=== PATIENT | female | born 1950 | race Caucasian/White ===

== ENCOUNTER → 2016-10-11 | Outpatient (CLI) | payer MEDICARE, OTHER ==
[~2016-10-11] MED LIST: DOCU-30 PO; ESTROGEN; FENTANYL PF 100 MCG/2ML ONE; FLUMAZENIL 0.1 MG/1 ML, 5ML ONE; HYDR-3138 PO; LEVO750T26 PO; METF500T4 PO; METO25TA35 PO; MIDAZOLAM 1 MG/ML, 5ML ONE; NALOXONE 1 MG/ML, 2ML ONE; PHEN-490 PO; POLY17PO5 PO; SIMV20TA3 PO
== END | disposition home or self-care (01) ==
LOC: RAD 10:14 → EDSTATUS 12:45
PROVIDERS: ATTEND Internal Medicine Hematology & Oncology
DX: C79.51 Secondary malignant neoplasm of bone (principal); C34.90 Malignant neoplasm of unspecified part of unspecified bronchus or lung; G31.89 Other specified degenerative diseases of nervous system; G93.89 Other specified disorders of brain; I67.82 Cerebral ischemia; R90.82 White matter disease, unspecified
CPT/HCPCS: 70551; J2250; J3010; J2310

== ENCOUNTER → 2016-10-11 | Outpatient (CLI) | payer MEDICARE, OTHER ==
[~2016-10-11] MED LIST changes: -FENTANYL PF 100 MCG/2ML ONE; -FLUMAZENIL 0.1 MG/1 ML, 5ML ONE; -MIDAZOLAM 1 MG/ML, 5ML ONE; -NALOXONE 1 MG/ML, 2ML ONE
== END | disposition home or self-care (01) ==
LOC: CFH 08:20 → EDSTATUS 08:30
PROVIDERS: ATTEND Internal Medicine Hematology & Oncology
DX: C34.90 Malignant neoplasm of unspecified part of unspecified bronchus or lung (principal); C79.51 Secondary malignant neoplasm of bone; N20.0 Calculus of kidney; R91.8 Other nonspecific abnormal finding of lung field; M89.551 Osteolysis, right thigh
CPT/HCPCS: 78815; A9552

== ENCOUNTER 2016-10-19 11:40 | Day surgery (SDC) | payer MEDICARE, OTHER ==
[~2016-10-19] VITALS: Ht 167.6 cm; Wt 98.5 kg
[2016-10-19] MEDS ORDERED: OXYC-302 PO (12:06)
[2016-10-19] MEDS ORDERED: LACTATED RINGERS 1,000 ML IV SCH (12:32)
[2016-10-19 12:33] VITALS: BP 120/87
[2016-10-19] MEDS ORDERED: ROCURONIUM 10 MG/ML ONE (12:47)
[2016-10-19] MEDS ORDERED: SUCCINYLCHOLINE 20 MG/ML, 10ML ONE (12:47)
[2016-10-19] MEDS ORDERED: ONDANSETRON 2MG/ML, 2ML ONE (12:47)
[2016-10-19] MEDS ORDERED: EPHEDRINE 50 MG/ML, 1ML ONE (12:47)
[2016-10-19] MEDS ORDERED: PROPOFOL 10 MG/ML, 20ML ONE (12:47)
[2016-10-19] MEDS ORDERED: GADOBUTROL 10 MMOL/10 ML PFS ONE (13:56)
== END 2016-10-19 16:00 | disposition home or self-care (01) ==
LOC: OUT 11:40 → EDSTATUS 12:45 → OUT 16:00
PROVIDERS: ATTEND Internal Medicine Hematology & Oncology
DX: C34.90 Malignant neoplasm of unspecified part of unspecified bronchus or lung (principal); C79.51 Secondary malignant neoplasm of bone; M48.06 Spinal stenosis, lumbar region; M51.36 Other intervertebral disc degeneration, lumbar region; L72.3 Sebaceous cyst; Z85.528 Personal history of other malignant neoplasm of kidney; I10 Essential (primary) hypertension; I27.2 Other secondary pulmonary hypertension; E66.9 Obesity, unspecified; Z68.35 Body mass index [BMI] 35.0-35.9, adult; Z87.440 Personal history of urinary (tract) infections; Z90.49 Acquired absence of other specified parts of digestive tract; E78.00 Pure hypercholesterolemia, unspecified; Z87.442 Personal history of urinary calculi; Z80.1 Family history of malignant neoplasm of trachea, bronchus and lung
CPT/HCPCS: 70553; 72158; A9585; J0330; J2250; J2405; J2704; J7120

== ENCOUNTER 2016-11-01 09:44 | Inpatient (IN) | payer MEDICARE, OTHER ==
[~2016-11-01] VITALS: Ht 175.3 cm; Wt 104.8 kg
[~2016-11-01 09:44] MED LIST changes: +OXYC-302 PO
[2016-11-01] MEDS ORDERED: SODIUM CHLORIDE 0.9% 1,000ML IVBOLUS ONE (10:30)
[2016-11-01] MEDS ORDERED: ONDANSETRON 2MG/ML, 2ML IVPush ONE (10:30)
[2016-11-01] MEDS ORDERED: OXYC10TA6 PO (10:52)
[2016-11-01] MEDS ORDERED: PLEASE ENTER HEIGHT AND WEIGHT MC SCH (11:00)
[2016-11-01] MEDS ORDERED: ONDANSETRON 2MG/ML, 2ML ONE (11:13)
[2016-11-01] MEDS ORDERED: MORPHINE SULFATE 4 MG/ML, 1ML ONE ×2 (11:13→12:11)
[2016-11-01] MEDS: MORPHINE SULFATE 4 MG/ML, 1ML IVPush PRN ×2 (11:17→12:14)
[2016-11-01 11:39] LABS: DIFF TOTAL CELLS COUNTED 100 CELL DIFF
[2016-11-01 11:48] LABS: BLOOD UREA NITROGEN 20 mg/dL (7-18)
[2016-11-01 11:53] LABS: ASPARTATE AMINO TRANSFERASE 38 U/L (15-37)
[2016-11-01 12:33] LABS: VERIFY COUNTS? YES
[2016-11-01 12:34] LABS: ANISOCYTOSIS 1+
[2016-11-01] MEDS ORDERED: HYDROmorphone 1 MG/ML, 1ML ONE (12:49)
[2016-11-01] MEDS: HYDROmorphone 2 MG/ML, 1ML IVPush PRN ×2 (12:56→20:21)
[2016-11-01] MEDS ORDERED: OMNIPAQUE 350 MG/ML, 100ML BOTTLE ONE (14:04)
[2016-11-01] MEDS ORDERED: CEFTRIAXONE PMX 1GM/50ML 50 ML ONE (16:18)
[2016-11-01] MEDS ORDERED: CEFTRIAXONE PMX 1GM/50ML 50 ML IV ONE (16:30)
[2016-11-01 17:26] VITALS: BP 112/68
[2016-11-01] MEDS ORDERED: ONDANSETRON 2MG/ML, 2ML IVP PRN (17:30)
[2016-11-01] MEDS: INSULIN REGULAR 100 UNITS/ML, 3ML VIAL SQ-INSULIN SCH ×2 (17:30→20:21)
[2016-11-01] MEDS ORDERED: TRAZODONE 50MG TABLET PO PRN (17:30)
[2016-11-01] MEDS ORDERED: DOCUSATE 100 MG CAPSULE PO PRN (17:30)
[2016-11-01] MEDS ORDERED: HYDROcodone/APAP 5/325 TABLET PO PRN (17:30)
[2016-11-01] MEDS ORDERED: ACETAMINOPHEN 325 MG TABLET PO PRN (17:30)
[2016-11-01] MEDS ORDERED: MORPHINE SULFATE 4 MG/ML, 1ML IVPush PRN (17:30)
[2016-11-01] MEDS: CEFTRIAXONE PMX 1GM/50ML 50 ML IV SCH (18:00)
[2016-11-01] MEDS: SODIUM CHLORIDE 0.9% 1,000 ML IV SCH (18:45)
[2016-11-01 20:05] VITALS: BP 109/74
[2016-11-01] MEDS: ENOXAPARIN 40 MG/0.4 ML SQ SCH (20:21)
[2016-11-01] MEDS: OXYcodone IR 5MG TABLET PO PRN (22:03)
[2016-11-02] MEDS: HYDROmorphone 2 MG/ML, 1ML IVPush PRN ×5 (00:44→20:07)
[2016-11-02 01:09] VITALS: BP 99/64
[2016-11-02] MEDS: OXYcodone IR 5MG TABLET PO PRN ×3 (04:09→21:34)
[2016-11-02] MEDS: SODIUM CHLORIDE 0.9% 1,000 ML IV SCH ×2 (04:20→15:46)
[2016-11-02 04:57] VITALS: BP 123/79
[2016-11-02 06:37] LABS: BLOOD UREA NITROGEN 18 mg/dL (7-18)
[2016-11-02] MEDS: INSULIN REGULAR 100 UNITS/ML, 3ML VIAL SQ-INSULIN SCH ×4 (07:00→20:05)
[2016-11-02 07:39] VITALS: BP 127/74
[2016-11-02] MEDS ORDERED: OxyconTIN ER 20 MG TAB.ER ONE ×2 (12:14→23:01)
[2016-11-02] MEDS: OxyconTIN ER 40 MG TAB.ER PO SCH ×2 (12:15→23:08)
[2016-11-02 12:26] VITALS: BP 107/69
[2016-11-02 12:30] LABS: DIFF TOTAL CELLS COUNTED 100 CELL DIFF
[2016-11-02 12:33] LABS: VERIFY COUNTS? YES
[2016-11-02 12:53] VITALS: BP 132/70
[2016-11-02] MEDS: ENOXAPARIN 40 MG/0.4 ML SQ SCH (16:47)
[2016-11-02] MEDS: DEXAMETHASONE 1 MG TABLET PO SCH (16:47)
[2016-11-02] MEDS: CEFTRIAXONE PMX 1GM/50ML 50 ML IV SCH (16:47)
[2016-11-02 18:23] LABS: TOTAL IRON BINDING CAPACITY 226 mcg/dL (250-450)
[2016-11-02 19:45] VITALS: BP 111/60
[2016-11-03 00:04] VITALS: BP 125/75
[2016-11-03] MEDS: HYDROmorphone 2 MG/ML, 1ML IVPush PRN ×7 (00:10→21:51)
[2016-11-03] MEDS: OXYcodone IR 5MG TABLET PO PRN ×5 (02:48→19:46)
[2016-11-03] MEDS: SODIUM CHLORIDE 0.9% 1,000 ML IV SCH ×2 (02:50→19:44)
[2016-11-03 06:41] LABS: BLOOD UREA NITROGEN 11 mg/dL (7-18)
[2016-11-03 06:48] LABS: DIFF TOTAL CELLS COUNTED 100 CELL DIFF
[2016-11-03 06:50] LABS: LARGE PLATELETS 1+; POLYCHROMASIA 1+; VERIFY COUNTS? YES
[2016-11-03 07:00] VITALS: BP 141/79
[2016-11-03] MEDS: INSULIN REGULAR 100 UNITS/ML, 3ML VIAL SQ-INSULIN SCH ×4 (07:00→21:39)
[2016-11-03] MEDS ORDERED: HYDROmorphone 1 MG/ML, 1ML ONE ×3 (07:54→14:14)
[2016-11-03] MEDS: DEXAMETHASONE 1 MG TABLET PO SCH ×2 (07:57→16:32)
[2016-11-03 14:13] VITALS: BP 134/76
[2016-11-03] MEDS ORDERED: OxyconTIN ER 10 MG TAB.ER ONE (14:14)
[2016-11-03] MEDS ORDERED: OxyconTIN ER 20 MG TAB.ER ONE (14:15)
[2016-11-03] MEDS: OxyconTIN ER 40 MG TAB.ER PO SCH (14:17)
[2016-11-03] MEDS: CEFTRIAXONE PMX 1GM/50ML 50 ML IV SCH (16:32)
[2016-11-03 19:50] VITALS: BP 126/76
[2016-11-03] MEDS: ENOXAPARIN 40 MG/0.4 ML SQ SCH (21:40)
[2016-11-04] MEDS ORDERED: OxyconTIN ER 20 MG TAB.ER ONE ×2 (00:29→12:27)
[2016-11-04] MEDS: OxyconTIN ER 40 MG TAB.ER PO SCH ×2 (00:30→12:28)
[2016-11-04] MEDS: OXYcodone IR 5MG TABLET PO PRN ×3 (01:57→20:21)
[2016-11-04 03:14] VITALS: BP 134/72
[2016-11-04] MEDS: SODIUM CHLORIDE 0.9% 1,000 ML IV SCH ×2 (06:02→16:56)
[2016-11-04] MEDS: INSULIN REGULAR 100 UNITS/ML, 3ML VIAL SQ-INSULIN SCH ×3 (07:00→16:00)
[2016-11-04 07:07] VITALS: BP 145/73
[2016-11-04] MEDS: DEXAMETHASONE 1 MG TABLET PO SCH ×2 (08:18→16:56)
[2016-11-04] MEDS: HYDROmorphone 1 MG/ML, 1ML IVPush PRN ×3 (08:18→16:56)
[2016-11-04 14:00] VITALS: BP 140/76
[2016-11-04 20:18] VITALS: BP 144/77
[2016-11-04] MEDS: ENOXAPARIN 40 MG/0.4 ML SQ SCH (20:21)
[2016-11-04] MEDS: SULFAMETH./TRIMETHOPRIM DS 800MG/160MG TABLET PO SCH (20:22)
[2016-11-05] MEDS: OxyconTIN ER 40 MG TAB.ER PO SCH ×2 (00:30→12:25)
[2016-11-05] MEDS ORDERED: OxyconTIN ER 20 MG TAB.ER ONE ×2 (01:33→12:19)
[2016-11-05] MEDS: SODIUM CHLORIDE 0.9% 1,000 ML IV SCH ×2 (01:40→15:38)
[2016-11-05 02:00] VITALS: BP 127/74
[2016-11-05] MEDS: OXYcodone IR 5MG TABLET PO PRN ×3 (03:44→15:29)
[2016-11-05 05:06] LABS: DIFF TOTAL CELLS COUNTED 100 CELL DIFF
[2016-11-05 05:09] LABS: ANISOCYTOSIS 1+; POLYCHROMASIA 1+; VERIFY COUNTS? YES
[2016-11-05 05:10] LABS: LARGE PLATELETS 1+
[2016-11-05 07:49] VITALS: BP 120/76
[2016-11-05] MEDS: SULFAMETH./TRIMETHOPRIM DS 800MG/160MG TABLET PO SCH (08:49)
[2016-11-05] MEDS: DEXAMETHASONE 1 MG TABLET PO SCH (08:49)
[2016-11-05] MEDS ORDERED: IRON SUCROSE COMPLEX 100MG/5ML IV SCH (09:00)
[2016-11-05] MEDS ORDERED: DOCU-30 PO ×2 (10:18→10:24)
[2016-11-05] MEDS ORDERED: CEPH-376 PO (10:18)
[2016-11-05] MEDS ORDERED: DEXA1TAB5 PO (10:18)
[2016-11-05] MEDS ORDERED: TEMA15CA6 PO (10:18)
[2016-11-05] MEDS ORDERED: FERR324T18 PO (10:24)
[2016-11-05] MEDS: HYDROmorphone 1 MG/ML, 1ML IVPush PRN (10:59)
== END 2016-11-05 16:55 | disposition home health service (06) | DRG 543 ==
LOC: ED 12:24 → EDIP 14:48 → 3NW 17:22
PROVIDERS: ADMIT Internal Medicine; ATTEND Internal Medicine
PROC: 0T9B70Z Drainage of Bladder with Drainage Device, Via Natural or Artificial Opening (ICD-10-PCS; principal; 2016-11-01)
DX: M84.58XA Pathological fracture in neoplastic disease, other specified site, initial encounter for fracture (principal); N39.0 Urinary tract infection, site not specified; C64.9 Malignant neoplasm of unspecified kidney, except renal pelvis; C79.51 Secondary malignant neoplasm of bone; N17.9 Acute kidney failure, unspecified; B96.1 Klebsiella pneumoniae [K. pneumoniae] as the cause of diseases classified elsewhere; D50.9 Iron deficiency anemia, unspecified; E78.00 Pure hypercholesterolemia, unspecified; Z51.5 Encounter for palliative care; Z85.528 Personal history of other malignant neoplasm of kidney; Z87.442 Personal history of urinary calculi; Z87.891 Personal history of nicotine dependence; Z85.118 Personal history of other malignant neoplasm of bronchus and lung; Z87.19 Personal history of other diseases of the digestive system; Z90.710 Acquired absence of both cervix and uterus; Z90.49 Acquired absence of other specified parts of digestive tract; Z88.0 Allergy status to penicillin; R53.1 Weakness
CPT/HCPCS: 36415; 71010; 71275; 77295; 77300; 77334; 77387; 77412; 80048; 80053; 81001; 82962; 83540; 83550; 84439; 84443; 85025; 85379; 87077; 87086; 87186; 93005; 96361; 96365; 96375; J0696; J1170; J1650; J1756; J2405; Q9967; J7030

== ENCOUNTER 2016-11-17 07:46 | Day surgery (SDC) | payer MEDICARE, OTHER ==
[~2016-11-17] VITALS: Ht 167.6 cm; Wt 96.0 kg
[~2016-11-17 07:46] MED LIST changes: +CEPH-376 PO; +DEXA1TAB5 PO; +FERR324T18 PO; +OXYC10TA6 PO; +TEMA15CA6 PO
[2016-11-17 08:11] VITALS: BP 126/79
[2016-11-17] MEDS ORDERED: OXYC10TA32 PO (08:26)
[2016-11-17] MEDS ORDERED: LORA-445 PO (08:26)
[2016-11-17] MEDS ORDERED: TEMA15CA PO (08:26)
[2016-11-17] MEDS ORDERED: FERR325T20 PO (08:26)
[2016-11-17] MEDS ORDERED: OXYC10TA6 PO (08:26)
[2016-11-17] MEDS ORDERED: DOCU-30 PO (08:26)
[2016-11-17] MEDS ORDERED: DEXA2TAB PO (08:26)
[2016-11-17] MEDS ORDERED: POLY17PO5 PO (08:26)
[2016-11-17] MEDS ORDERED: OXYcodone IR 5MG TABLET ONE (09:52)
[2016-11-17] MEDS ORDERED: LORazepam 0.5MG TABLET PO ONE (10:00)
[2016-11-17] MEDS ORDERED: OXYcodone IR 5MG TABLET PO PRN (10:00)
== END 2016-11-17 10:20 | disposition home or self-care (01) ==
LOC: OUT 07:46
PROVIDERS: ATTEND Internal Medicine Hematology & Oncology
DX: C79.51 Secondary malignant neoplasm of bone (principal); C34.90 Malignant neoplasm of unspecified part of unspecified bronchus or lung; I10 Essential (primary) hypertension; E78.5 Hyperlipidemia, unspecified; Z90.710 Acquired absence of both cervix and uterus; Z90.722 Acquired absence of ovaries, bilateral; Z90.49 Acquired absence of other specified parts of digestive tract; Z85.528 Personal history of other malignant neoplasm of kidney; Z87.891 Personal history of nicotine dependence; Z80.1 Family history of malignant neoplasm of trachea, bronchus and lung
CPT/HCPCS: 20206; 77012; 88112; 88304; 88305; 99156; 99157; J2250; J3010; 88341; 88342; G0461; J2310